=== PATIENT | female | born 1955 | race Two or more races ===

== ENCOUNTER 2023-08-20 13:10 | Emergency (ER) | payer MEDICARE, OTHER ==
[~2023-08-20] VITALS: Ht 165.1 cm; Wt 73.7 kg
[2023-08-20 13:40] VITALS: BP 143/65; PULSE 113; RESP 22; TEMP 97.8; O2SAT 96
[2023-08-20] MEDS ORDERED: AZIT-81 PO (16:24)
[2023-08-20] MEDS ORDERED: PROM1SOL4 PO (16:24)
[2023-08-20] MEDS ORDERED: PROMETHAZINE W/CODEINE 5 ML ORAL SYRUP PO ONE (16:30)
== END 2023-08-20 16:31 | disposition home or self-care (01) ==
LOC: ER 13:10
DX: J40 Bronchitis, not specified as acute or chronic (principal); R07.89 Other chest pain
CPT/HCPCS: 71046

== ENCOUNTER 2023-11-10 13:52 | Emergency (ER) | payer MEDICARE, OTHER ==
[~2023-11-10] VITALS: Ht 165.1 cm; Wt 73.0 kg
[~2023-11-10 13:52] MED LIST: AZIT-185 PO; PROM1SOL4 PO
[2023-11-10 15:22] VITALS: BP 116/74; PULSE 86; RESP 18; TEMP 98; O2SAT 94
[2023-11-10] MEDS ORDERED: PROM1SOL4 PO (15:50)
[2023-11-10] MEDS ORDERED: BENZ100C97 PO (15:50)
== END 2023-11-10 15:49 | disposition home or self-care (01) ==
LOC: ER 14:00
DX: R05.9 Cough, unspecified (principal)